=== PATIENT | female | born 1975 | race Caucasian/White ===

== ENCOUNTER 2017-08-10 20:19 | Emergency (ER) | payer MEDICAID ==
--- NOTE | 2017-08-10 20:54 | ED Physician Chart ---
ED Chief Complaint/HPI - Patient Information Date Seen:: 08/10/17 Time Seen:: 20:49 Chief Complaint:: ? insect bites History of Present Illness:: pt has rash all over/itchy...has numerous funes which appear insect bites all over..mainly on outsides of arms and trunk. no fever. no sob. others in house have bites too but not nearly as bad. bites are often double bite funes about 1/2 cm apart. she has used lotion of her sons triamcinolone w some relief. also has used aloe w some relief. never had rash before. isnt seeing bugs/mosquitoes etc.. no anat pmh. says she uses bug repellant..even at home. has not had home disinfected. Allergies:: Allergies Allergy/AdvReac Type Severity Reaction Status Date / Time No Known Allergies Allergy Verified 08/10/17 20:34 Vitals:: Vital Signs - 8 hr 08/10/17 20:25 Temp 98.1 F HR 99 RR 18 BP 123/80 O2 Sat % 98 Historian:: Patient, Family Member ED Review of Systems - Review of Systems General/Constitutional: No fever, No chills, No weight loss, No weakness, No diaphoresis, No edema, No loss of appetite Skin: Skin lesions, No rash, No bruising Head: No headache, No light-headedness Eyes: No loss of vision, No pain, No diplopia ENT: No earache, No nasal drainage, No sore throat, No tinnitus Neck: No neck pain, No swelling, No thyromegaly, No stiffness, No mass noted Cardio Vascular: No chest pain, No palpitations, No PND, No orthopnea, No edema Pulmonary: No SOB, No cough, No sputum, No wheezing GI: No nausea, No vomiting, No diarrhea, No pain, No melena, No hematochezia, No constipation, No hematemesis G/U: No dysuria, No frequency, No hematuria Musculoskeletal: No bone or joint pain, No back pain, No muscle pain Endocrine: No polyuria, No polydipsia Psychiatric: No prior psych history, No depression, No anxiety, No suicidal ideation Hematopoietic: No bruising, No lymphadenopathy Allergic/Immuno: No urticaria, No angioedema Neurological: No syncope, No focal symptoms, No weakness, No paresthesia, No headache, No seizure, No dizziness, No confusion, No vertigo ED Past Medical History - Past Medical History Past Medical History: No significant medical hx Social History: Medication: Reviewed Family Medical History - Family Member Daughter History Unknown: Yes Ethnicity: ED Physical Exam - Physical Examination General/Constitutional: Awake, Well-developed, well-nourished, Alert, No distress, GCS 15, Non-toxic appearing, Ambulatory Head: Atraumatic Eyes: Lids, conjuctiva normal, PERRL, EOMI Skin: Nl inspection, No ecchymosis, Well hydrated, No lymphadenopathy Other Skin comments:: skin lesions...small bite/sting funes of variable age. dense over external arm surfaces...not intertrigenous or on volar forearms. bites are often double bite funes about 1/2 cm apart. ENMT: External ears, nose nl, Nasal exam nl, Lips, teeth, gums nl Neck: Nontender, Full ROM w/o pain, No JVD, No nuchal rigidity, No bruit, No mass, No stridor Respiratory: Nl effort/Exclusion, Clear to Auscultation, No Wheeze/Rhonchi/Rales Cardio Vascular: RRR, No murmur, gallop, rubs, NL S1 S2 GI: No tenderness/rebounding/guarding, No organomegaly, No hernia, Normal BS's, Nondistended, No mass/bruits, No McBurney tenderness : No CVA tenderness Extremities: No tenderness or effusion, Full ROM, normal strength in all extremities, No edema, Normal digits & nails Neuro/Psych: Alert/oriented, DTR's symmetric, Normal sensory exam, Normal motor strength, Judgement/insight normal, Mood normal, Normal gait, No focal deficits Misc: normal gait, Normal back, No paraspinal tenderness ED Septic Shock - . Is Septic Shock (SBP<90, OR Lactate>4 mmol\L) present?: No - <6hrs of presentation: Vital Signs: Vital Signs - 8 hr 08/10/17 20:25 Temp 98.1 F HR 99 RR 18 BP 123/80 O2 Sat % 98 ED Reassessment (Disposition) - Reassessment Reassessment:: rx medrol pack and eucerin itch cream, also po benadryl. advise pt have home fumigated and use bug spray. return if worse rash, fever or trouble breathing. see pmd in next few days. Reassessment Condition:: Unchanged - Diagnosis Diagnosis:: 1 insect bites/stings 2 suspicious for Bed Bug infestation - Aftercare/Follow up Instructions Aftercare/Follow-Up Instructions:: Counseled pt regarding lab results/diagnosis & need follow up - Patient Disposition Discharge/Transfer:: Home Condition at Disposition:: Unchanged ED Discharge Plan - Patient Disposition Instructions: [id number] Additional Instructions: FILL YOUR PRESCRIPTIONS AND TAKE THEM DIRECTED. FOLLOW THE DRBobby'S INSTRUCTIONS ON CLEANING YOUR HOME AND BEDDING, MATTRESSES, AND COUCHES. FOLLOW UP WITH YOUR REGULAR DOCTOR IF NOT FEELING ANY BETTER.
== END 2017-08-10 20:55 | disposition home or self-care (01) ==
LOC: ER 20:19
DX: S40.862A Insect bite (nonvenomous) of left upper arm, initial encounter (principal); S40.861A Insect bite (nonvenomous) of right upper arm, initial encounter; W57.XXXA Bitten or stung by nonvenomous insect and other nonvenomous arthropods, initial encounter; Y93.89 Activity, other specified; Y92.89 Other specified places as the place of occurrence of the external cause; Y99.8 Other external cause status
CPT/HCPCS: Z7502